=== PATIENT | male | born 1955 | race Caucasian/White ===

== ENCOUNTER → 2016-09-29 | Outpatient (CLI) | payer OTHER ==
[2016-09-29 10:21] LABS: FREE T4 1.15 ng/dl (0.76-1.46)
[2016-09-29 10:26] LABS: THYROID STIM HORMONE (HS) 1.19 uIU/ml (0.358-4.75)
[2016-09-29 10:28] LABS: HEMOGLOBIN A1c 5.7 % (4.8-5.6)
== END | disposition home or self-care (01) ==
LOC: LAB 09:17
PROVIDERS: Family Medicine
DX: R73.9 Hyperglycemia, unspecified (principal); E55.9 Vitamin D deficiency, unspecified; E66.01 Morbid (severe) obesity due to excess calories

== ENCOUNTER → 2019-06-22 | Outpatient (CLI) | payer OTHER ==
[2019-06-22 16:26] LABS: HEMATOCRIT 45.1 % (42.0-52.0); MEAN CORPUSCULAR HGB 31.2 pg (27.0-31.0); MEAN CORPUSCULAR HGB CONC 33.9 g/dl (33.0-37.0); RED BLOOD COUNT 4.9 10*6/uL (4.50-5.90); RED CELL DISTRI WIDTH 13.6 % (0-14.5); WHITE BLOOD COUNT 7.6 10*3/uL (4.8-10.8)
[2019-06-22 16:43] LABS: ALBUMIN 3.7 gm/dl (3.1-4.5); ALKALINE PHOSPHATASE 53 U/L (45-117); BUN 13 mg/dl (7-24); CHLORIDE 107 mmol/L (98-107); CHOLESTEROL 190 mg/dL (<200); CREATININE 1.01 mg/dL (0.70-1.30); HDL CHOLESTEROL 50 mg/dl (40-60); LDL CHOLESTEROL 101 mg/dL (9-159); POTASSIUM 3.9 mmol/L (3.5-5.1); SGOT/AST 24 IU/L (3-35); SGPT/ALT 41 U/L (12-78); SODIUM 141 mmol/L (136-145); TOTAL PROTEIN 7.7 gm/dL (6.4-8.2); TRIGLYCERIDES 194 mg/dl (<150); VLDL CHOLESTEROL 39 mg/dL (6-40)
== END | disposition home or self-care (01) ==
LOC: LAB 15:27
PROVIDERS: Family Medicine
DX: Z12.5 Encounter for screening for malignant neoplasm of prostate (principal); E78.00 Pure hypercholesterolemia, unspecified; M54.5 Low back pain

== ENCOUNTER 2022-09-27 17:44 | Emergency (ER) | payer MEDICARE ==
[~2022-09-27] VITALS: Ht 172.7 cm; Wt 104.3 kg
[2022-09-27] MEDS ORDERED: EPIPEN 2-P0.3 MG/0.3 IJ (18:32)
[2022-09-27] MEDS ORDERED: PREDNISONE50 MG PO (18:32)
[2022-09-27] MEDS ORDERED: BENADRYL ALLERG25 M5 PO (18:32)
== END 2022-09-27 19:19 | disposition home or self-care (01) ==
LOC: ED 17:44
DX: T63.441A Toxic effect of venom of bees, accidental (unintentional), initial encounter (principal); L29.9 Pruritus, unspecified; R06.89 Other abnormalities of breathing; Y92.89 Other specified places as the place of occurrence of the external cause

== ENCOUNTER → 2024-01-28 | Outpatient (CLI) | payer MEDICARE ==
[~2024-01-28] MED LIST: BENADRYL ALLERG25 M5 PO; EPIPEN 2-P0.3 MG/0.3 IJ; PREDNISONE50 MG PO
== END | disposition home or self-care (01) ==
LOC: RAD 14:57
PROVIDERS: ATTEND Family Medicine
DX: S42.91XG Fracture of right shoulder girdle, part unspecified, subsequent encounter for fracture with delayed healing (principal); M25.512 Pain in left shoulder; M25.511 Pain in right shoulder; X58.XXXD Exposure to other specified factors, subsequent encounter

== ENCOUNTER 2024-09-26 18:03 | Emergency (ER) | payer MEDICARE ==
[~2024-09-26] VITALS: Ht 172.7 cm; Wt 107.5 kg
[2024-09-26] MEDS ORDERED: Tdap Vaccine 0.5 ML SYR (Adult Vaccine) IM ONE (18:40)
[2024-09-26] MEDS ORDERED: LIDOCAINE HCL/EPINEPHRINE 50 ML VIAL ONE (19:02)
[2024-09-26] MEDS ORDERED: CEPHALEXIN500 M1 PO (19:02)
== END 2024-09-26 19:17 | disposition home or self-care (01) ==
LOC: ED 18:03
DX: S01.511A Laceration without foreign body of lip, initial encounter (principal); I10 Essential (primary) hypertension; E78.5 Hyperlipidemia, unspecified; Z79.899 Other long term (current) drug therapy; W54.1XXA Struck by dog, initial encounter; Y93.89 Activity, other specified; Y92.89 Other specified places as the place of occurrence of the external cause; Y99.8 Other external cause status